=== PATIENT | male | born 1955 | race Hispanic/Latino ===

== ENCOUNTER → 2018-07-05 | Outpatient (CLI) | payer OTHER | END | disposition home or self-care (01) | LOC: RAH 14:07 | PROVIDERS: ATTEND Orthopaedic Surgery | DX: M13.862 Other specified arthritis, left knee (principal); M11.262 Other chondrocalcinosis, left knee | CPT/HCPCS: 73562 ==

== ENCOUNTER → 2022-04-03 | Outpatient (CLI) | payer OTHER ==
[~2022-04-03] VITALS: Ht 172.7 cm; Wt 98.3 kg
[~2022-04-03] MED LIST: ACET-2743 PO; ACET-3540 PO; CEFAZOLIN SODIUM 1 GM VIAL IVP SCH; CEPH500B PO; DICL20GE TP; HYDR-4060 PO; IBUP-2070 PO; INUL2TAB5 PO; KRIL500C PO; LOSA50TA64 PO; MULT-1203 PO; TAMS-1 PO
[2022-04-03 10:42] VITALS: BP 161/83
[2022-04-03 10:52] LABS: BASOPHILS % (AUTO) 0.4 % (0.0-5.0); EOSINOPHILS % (AUTO) 2.8 % (0.0-8.0); HEMATOCRIT 47.2 % (42-54); LYMPHOCYTES % (AUTO) 35.8 % (21.0-51.0); MEAN CORPUSCULAR HEMOGLOBIN 30.4 pg (27.0-33.0); MEAN CORPUSCULAR HGB CONC 33.5 g/dL (32.0-36.0); MEAN CORPUSCULAR VOLUME 90.9 fL (79-99); MONOCYTES % (AUTO) 8.4 % (3.0-13.0); PLATELET COUNT (AUTO) 233 K/uL (130-400); RED BLOOD CELL COUNT(AUTO) 5.19 MIL/uL (4.50-6.20); RED CELL DISTRIBUTION WIDTH 13.4 % (11.0-15.5); WHITE BLOOD COUNT (AUTO) 6.7 K/uL (4.8-10.8)
[2022-04-03 11:02] LABS: CREATININE 1.1 mg/dL (0.5-1.5); POTASSIUM 4.6 mmol/L (3.5-5.1)
== END | disposition home or self-care (01) ==
LOC: DAH 08:47 → EDSTATUS 12:00
PROVIDERS: ATTEND Orthopaedic Surgery
DX: Z01.818 Encounter for other preprocedural examination (principal); S43.421A Sprain of right rotator cuff capsule, initial encounter; Z79.899 Other long term (current) drug therapy; X58.XXXA Exposure to other specified factors, initial encounter; Y93.89 Activity, other specified; Y92.89 Other specified places as the place of occurrence of the external cause
CPT/HCPCS: 36415; 80048; 85025; 87426; 93005

== ENCOUNTER 2022-04-13 07:27 | Day surgery (SDC) | payer OTHER ==
[2022-04-10 09:16] LABS: BASOPHILS % (AUTO) 0.5 % (0.0-5.0); EOSINOPHILS % (AUTO) 3.4 % (0.0-8.0); HEMATOCRIT 44.4 % (42-54); LYMPHOCYTES % (AUTO) 39.1 % (21.0-51.0); MEAN CORPUSCULAR HEMOGLOBIN 30.5 pg (27.0-33.0); MEAN CORPUSCULAR VOLUME 89.7 fL (79-99); MONOCYTES % (AUTO) 8.2 % (3.0-13.0); NEUTROPHILS % (AUTO) 48.3 % (40.0-77.0); PLATELET COUNT (AUTO) 232 K/uL (130-400); RED BLOOD CELL COUNT(AUTO) 4.95 MIL/uL (4.50-6.20); RED CELL DISTRIBUTION WIDTH 13.2 % (11.0-15.5); WHITE BLOOD COUNT (AUTO) 6.5 K/uL (4.8-10.8)
[2022-04-10 09:23] VITALS: BP 133/78
[2022-04-10 09:31] LABS: CREATININE 1.1 mg/dL (0.5-1.5); POTASSIUM 3.8 mmol/L (3.5-5.1)
[~2022-04-13] VITALS: Ht 172.7 cm; Wt 94.1 kg
[2022-04-13] VITALS (19 sets, daily range): BP systolic 101–124; BP diastolic 63–83
[~2022-04-13 07:27] MED LIST changes: +CEFAZOLIN SODIUM 2 GM VIAL IV ONE; -CEPH500B PO; -DICL20GE TP; +EPINEPHRINE 1 MG/ML 30ML VIAL IJ ONE; -HYDR-4060 PO; -IBUP-2070 PO
[2022-04-13] MEDS ORDERED: 0.9%NACL 1000ML 1,000 ML IV ONE (08:10)
[2022-04-13] MEDS ORDERED: EPINEPHRINE 1 MG/ML 30ML VIAL IJ ONE ×2 (08:46→10:25)
[2022-04-13] MEDS ORDERED: MIDAZOLAM HCL 1 MG/ML 2ML VIAL ONE (09:13)
[2022-04-13] MEDS ORDERED: FENTANYL CITRATE PF 50 MCG/1 ML 2ML VIAL ONE (09:13)
[2022-04-13] MEDS ORDERED: CEFAZOLIN SODIUM 2 GM VIAL IV ONE (09:45)
[2022-04-13] MEDS ORDERED: ROCURONIUM 10MG/1ML SYR 10 MG/ML ML ONE ×2 (09:53→10:23)
[2022-04-13] MEDS ORDERED: PROPOFOL 10 MG/ML 20ML VIAL IV ONE (09:53)
[2022-04-13] MEDS ORDERED: ONDANSETRON 4MG INJ ONE (10:00)
[2022-04-13] MEDS ORDERED: PHENYLEPHRINE HCL 10 MG/ML 1ML VIAL IV ONE (10:17)
[2022-04-13] MEDS ORDERED: NEOSTIGMINE 5MG/5ML SYR IV ONE (13:24)
[2022-04-13] MEDS ORDERED: GLYCOPYRROLATE 1 MG/5 ML SYRINGE ONE (13:24)
[2022-04-13] MEDS ORDERED: DEXAMETHASONE SOD PHOSPHATE 10MG/ML 1ML VIAL ONE (13:25)
[2022-04-13] MEDS ORDERED: CEPH500B PO (13:28)
[2022-04-13] MEDS ORDERED: HYDR-4060 PO (13:28)
[2022-04-13] MEDS ORDERED: IBUP-2070 PO (13:28)
== END 2022-04-13 16:15 | disposition home or self-care (01) ==
LOC: DAH 07:27
PROVIDERS: ATTEND Orthopaedic Surgery
DX: S46.011A Strain of muscle(s) and tendon(s) of the rotator cuff of right shoulder, initial encounter (principal); M25.811 Other specified joint disorders, right shoulder; I10 Essential (primary) hypertension; E11.9 Type 2 diabetes mellitus without complications; Z98.890 Other specified postprocedural states; Z90.49 Acquired absence of other specified parts of digestive tract; Z79.899 Other long term (current) drug therapy; W22.8XXA Striking against or struck by other objects, initial encounter; Y93.89 Activity, other specified; Y92.89 Other specified places as the place of occurrence of the external cause
CPT/HCPCS: 80048; 85025; 87426; 36415; 64415; 29827; 29824; 29826; 82948 ×2; 76942; A4663; J7030 ×2; A4565; J0690 ×2; J3010; J3490; J1100; J2710; J0171 ×2; J2250; J2704; J2405; J2370; A6204; G0168; A4649 ×2; A4930; C1713 ×3; A5120; A4215; A4223; A4222; A4221; A4600

== ENCOUNTER → 2024-02-22 | Outpatient (CLI) | payer OTHER ==
[~2024-02-22] MED LIST changes: -CEFAZOLIN SODIUM 1 GM VIAL IVP SCH; -CEFAZOLIN SODIUM 2 GM VIAL IV ONE; +CEPH500B PO; -EPINEPHRINE 1 MG/ML 30ML VIAL IJ ONE; +HYDR-4060 PO; +IBUP-2070 PO
[2024-02-22 09:54] LABS: ALBUMIN 3.6 g/dL (3.5-5.0); BILIRUBIN,TOTAL 0.8 mg/dL (0.2-1.0); POTASSIUM 4.5 mmol/L (3.5-5.1); TOTAL PROTEIN, SERUM 7.2 g/dL (6.0-8.3)
== END | disposition home or self-care (01) ==
LOC: LAB 08:47
PROVIDERS: ATTEND Internal Medicine Cardiovascular Disease
DX: E78.5 Hyperlipidemia, unspecified (principal); J90 Pleural effusion, not elsewhere classified; R07.9 Chest pain, unspecified
CPT/HCPCS: 36415; 80053

== ENCOUNTER → 2024-03-02 | Outpatient (CLI) | payer OTHER ==
[~2024-03-02] MED LIST changes: +IOHEXOL 350 MG/ML 100ML INFUS..BTL IV ONE
== END | disposition home or self-care (01) ==
LOC: RAH 07:27
PROVIDERS: ATTEND Internal Medicine Cardiovascular Disease
DX: I20.9 Angina pectoris, unspecified (principal); R06.9 Unspecified abnormalities of breathing; M47.815 Spondylosis without myelopathy or radiculopathy, thoracolumbar region
CPT/HCPCS: 75574; Q9967